=== PATIENT | male | born 1945 ===

== ENCOUNTER 2020-06-07 10:59 | Inpatient (IN) | payer MEDICARE ==
[~2020-06-07] VITALS: Ht 177.8 cm; Wt 89.1 kg
[2020-06-07 11:50] LABS: Basophils # (auto) 0 10 ^3/uL (0-0.2); Basophils % (auto) 0.2 % (0.0-2.0); Eosinophils # (auto) 0 10 ^3/uL (0-0.8); Hematocrit 38.8 % (41.0-53.0); Hemoglobin 13.1 g/dL (13.5-17.5); Lymphocytes # (auto) 0.5 10 ^3/uL (0.4-5.4); Lymphocytes % (auto) 4.3 % (10.0-50.0); Mean Corpuscular Hemoglobin 31.7 pg (28.0-32.0); Mean Corpuscular Hgb Conc. 33.8 g/dL (32.0-36.0); Mean Corpuscular Volume 93.7 fL (80.0-100.0); Monocytes # (auto) 1.1 10 ^3/uL (0-1.3); Monocytes % (auto) 8.4 % (0.0-12.0); Neutrophils # (auto) 11.1 10 ^3/uL (1.6-8.6); Neutrophils % (auto) 87.1 % (37.0-80.0); Platelet Count (auto) 287 10^3/uL (140-450); Red Blood Cells 4.14 10^6/uL (4.5-5.90); Red Cell Distribution Width 15.4 % (11.8-14.3); White Blood Cell 12.7 10^3/uL (4.4-10.8)
[2020-06-07 12:02] LABS: Albumin 3.5 g/dL (3.4-5.0); Anion Gap 8 (5-15); Blood Urea Nitrogen 20 mg/dL (7-18); Calcium 8.8 mg/dL (8.5-10.1); Carbon Dioxide 21 mmol/L (21-32); Chloride 106 mmol/L (98-107); Glucose 135 mg/dL (74-106); Potassium 4.4 mmol/L (3.5-5.1); Sodium 135 mmol/L (136-145)
[2020-06-07 12:08] LABS: Alanine Aminotransferase 25 U/L (16-61); Alkaline Phosphatase 129 U/L (45-117); Aspartate Aminotransferase 15 U/L (15-37); BUN/Creatinine Ratio 17.4; Bilirubin, Total 0.6 mg/dL (0.2-1.0); GFR African American 80 mL/min; GFR Non-African American 66 mL/min; Total Protein 7.1 g/dL (6.4-8.2)
[2020-06-07] MEDS ORDERED: NITROGLYCERIN 0.4 MG SL TAB SL PRN (16:15)
[2020-06-07] MEDS ORDERED: ONDANSETRON HCL 4 MG/2 ML VIAL IV PRN (16:15)
[2020-06-07] MEDS ORDERED: HYDROmorphone HCL 2 MG/ML VL IV PRN (16:15)
[2020-06-07] MEDS ORDERED: MORPHINE SULF INJ 2 MG/ML SYRINGE 1ML IV PRN (16:15)
[2020-06-07 20:13] LABS: Urine Bacteria NONE SEEN /hpf (None Seen); Urine Blood Negative /uL (Negative); Urine Mucus FEW (None Seen); Urine Specific Gravity 1.024 (1.001-1.035); Urine WBC <1 /hpf (0 - 3)
[2020-06-07 22:00] VITALS: BP 105/62
[2020-06-07] MEDS ORDERED: SACU1TAB7 PO ×2 (22:50→23:04)
[2020-06-07] MEDS ORDERED: ROSU10TA16 PO ×2 (22:50→23:04)
[2020-06-07] MEDS ORDERED: AMIO200T33 PO ×2 (22:50→23:04)
[2020-06-07] MEDS ORDERED: OMEP20TA PO ×2 (22:50→23:04)
[2020-06-07] MEDS ORDERED: EPLE25TA PO ×2 (22:50→23:04)
[2020-06-07] MEDS ORDERED: FERR-20 PO (22:50)
[2020-06-07] MEDS ORDERED: SPIR25TA PO ×2 (22:50→23:04)
[2020-06-07] MEDS ORDERED: PRAS10TA8 PO (22:50)
[2020-06-07] MEDS ORDERED: IVAB1.7T PO ×2 (22:50→23:04)
[2020-06-07] MEDS ORDERED: ASPI325T4 PO (22:50)
[2020-06-07] MEDS ORDERED: FURO1TAB33 PO ×2 (22:50→23:04)
[2020-06-07] MEDS ORDERED: WARF3TAB22 PO (22:50)
[2020-06-07] MEDS ORDERED: TAM04C PO ×2 (22:50→23:04)
[2020-06-07] MEDS ORDERED: DOCU-80 PO (22:50)
[2020-06-07] MEDS ORDERED: MULTCAP45 PO (22:50)
[2020-06-07] MEDS ORDERED: LEVO100T8 PO (22:50)
[2020-06-07] MEDS ORDERED: FERR324T4 PO (23:04)
[2020-06-07] MEDS ORDERED: MULT-1018 PO (23:04)
[2020-06-07] MEDS ORDERED: LEVO100C3 PO (23:04)
[2020-06-07] MEDS ORDERED: LEVOTHYROXINE SODIUM 100 MCG TAB PO ONE (23:15)
[2020-06-07] MEDS ORDERED: AMIODARONE HCL 200 MG TAB PO ONE (23:15)
[2020-06-07 23:50] VITALS: BP 105/62
[2020-06-08 05:00] VITALS: BP 114/65
[2020-06-08 08:00] VITALS: BP 107/66
[2020-06-08] MEDS ORDERED: SACUBITRIL-VALSARTAN 24mg/26mg TAB PO SCH (10:00)
[2020-06-08] MEDS: SPIRONOLACTONE 25 MG TAB PO SCH (11:21)
[2020-06-08] MEDS: FERROUS SULFATE 325 MG TAB PO SCH (11:21)
[2020-06-08] MEDS: INSPRA PO SCH (11:21)
[2020-06-08] MEDS: IVABRADINE 5 MG TAB PO SCH ×2 (11:22→22:10)
[2020-06-08] MEDS: TAMSULOSIN HYDROCHLORIDE 0.4 MG CAP PO SCH (11:22)
[2020-06-08] MEDS: DOCUSATE SOD 100 MG CAP PO SCH (11:22)
[2020-06-08] MEDS: MULTIPLE VITAMIN TAB PO SCH (11:23)
[2020-06-08] MEDS: FUROSEMIDE 20 MG TAB PO SCH (11:23)
[2020-06-08] MEDS: ATORVASTATIN 20 MG TAB PO SCH (11:23)
[2020-06-08] MEDS: SACUBITRIL-VALSARTAN 24mg/26mg TAB PO SCH ×2 (11:24→22:11)
[2020-06-08 12:00] VITALS: BP 102/66
[2020-06-08 16:00] VITALS: BP 102/50
[2020-06-08 17:27] LABS: INR 1.46 (0.9-1.15)
[2020-06-08] MEDS: LEVOTHYROXINE SODIUM 100 MCG TAB PO SCH (22:10)
[2020-06-08] MEDS: AMIODARONE HCL 200 MG TAB PO SCH (22:11)
[2020-06-08 22:21] VITALS: BP 111/58
[2020-06-09 06:42] LABS: BUN/Creatinine Ratio 18.2; Calcium 8.9 mg/dL (8.5-10.1); Potassium 4.2 mmol/L (3.5-5.1)
[2020-06-09 06:47] LABS: INR 1.34 (0.9-1.15); Partial Thromboplastin Time 34.4 sec (23.0-31.2)
[2020-06-09] MEDS ORDERED: ceFAZolin 1GM/50ML 100 ML IV ONE (07:07)
[2020-06-09] MEDS ORDERED: ROPIVACAINE 0.5% (5MG/ML) 20ML AMPULE IJ ONE (07:09)
[2020-06-09] MEDS ORDERED: BUPIVACAINE 0.5% P/F INJ 10 ML VIAL ONE (07:09)
[2020-06-09] MEDS ORDERED: HYDROmorphone HCL 2 MG/ML VL IV PRN (09:15)
[2020-06-09] MEDS ORDERED: ONDANSETRON HCL 4 MG/2 ML VIAL IV PRN ×2 (09:15)
[2020-06-09] MEDS ORDERED: NALBUPHINE HCL 10 MG/1ml INJECTION SUBCUT ONE (09:15)
[2020-06-09] MEDS ORDERED: NITROGLYCERIN 0.4 MG SL TAB SL PRN (09:15)
[2020-06-09] MEDS ORDERED: DexAMETHasone SOD PHOS 10MG/1ML VIAL INJ IV PRN (09:15)
[2020-06-09] MEDS ORDERED: diphenhdrAMINE HCL 50 MG/1 ML VL IV PRN (09:15)
[2020-06-09] MEDS ORDERED: NALOXONE HCL 0.4 MG/ML VIAL IV PRN (09:15)
[2020-06-09] MEDS ORDERED: ACETAMINOPHEN 325 MG TAB PO PRN (09:15)
[2020-06-09] MEDS ORDERED: ENOXAPARIN SOD 40 MG/0.4 ML SYRINGE SC SCH (10:00)
[2020-06-09] MEDS: TAMSULOSIN HYDROCHLORIDE 0.4 MG CAP PO SCH (10:30)
[2020-06-09] MEDS: FUROSEMIDE 20 MG TAB PO SCH (10:30)
[2020-06-09] MEDS: IVABRADINE 5 MG TAB PO SCH ×2 (10:30→22:00)
[2020-06-09] MEDS: INSPRA PO SCH (10:30)
[2020-06-09] MEDS: ATORVASTATIN 20 MG TAB PO SCH (10:30)
[2020-06-09] MEDS: SACUBITRIL-VALSARTAN 24mg/26mg TAB PO SCH ×2 (10:30→22:00)
[2020-06-09] MEDS: SPIRONOLACTONE 25 MG TAB PO SCH (10:30)
[2020-06-09] MEDS: MULTIPLE VITAMIN TAB PO SCH (11:00)
[2020-06-09] MEDS ORDERED: SODIUM CHLORIDE 0.9% 500 ML IV ONE (11:00)
[2020-06-09] MEDS: DOCUSATE SOD 100 MG CAP PO SCH (11:00)
[2020-06-09] MEDS: FERROUS SULFATE 325 MG TAB PO SCH (11:01)
[2020-06-09] MEDS: D5W/LACTATED RINGERS 1,000 ML IV SCH (12:27)
[2020-06-09 13:13] LABS: Basophils # (auto) 0.1 10 ^3/uL (0-0.2); Basophils % (auto) 0.5 % (0.0-2.0); Eosinophils # (auto) 0.1 10 ^3/uL (0-0.8); Eosinophils % (auto) 0.5 % (0.0-7.0); Hematocrit 34.6 % (41.0-53.0); Hemoglobin 11.5 g/dL (13.5-17.5); Lymphocytes # (auto) 0.9 10 ^3/uL (0.4-5.4); Lymphocytes % (auto) 7.5 % (10.0-50.0); Mean Corpuscular Hemoglobin 30.9 pg (28.0-32.0); Mean Corpuscular Hgb Conc. 33.1 g/dL (32.0-36.0); Mean Corpuscular Volume 93.2 fL (80.0-100.0); Monocytes # (auto) 1.6 10 ^3/uL (0-1.3); Monocytes % (auto) 13.9 % (0.0-12.0); Neutrophils # (auto) 9.2 10 ^3/uL (1.6-8.6); Neutrophils % (auto) 77.6 % (37.0-80.0); Platelet Count (auto) 253 10^3/uL (140-450); Red Blood Cells 3.71 10^6/uL (4.5-5.90); White Blood Cell 11.8 10^3/uL (4.4-10.8)
[2020-06-09] MEDS: ceFAZolin 1GM 2 GM in D5W 5% 100 ML IV SCH ×2 (14:20→22:03)
[2020-06-09] MEDS: SODIUM CHLOR 0.9% PF (SALINE LOCK) 10ML VIAL/SYR IV SCH ×2 (14:21→22:02)
[2020-06-09 14:30] VITALS: BP 82/71
[2020-06-09 16:52] VITALS: BP 89/49
[2020-06-09 20:00] VITALS: BP 95/58
[2020-06-09 22:00] VITALS: BP 95/56
[2020-06-09] MEDS: AMIODARONE HCL 200 MG TAB PO SCH (22:02)
[2020-06-09] MEDS: LEVOTHYROXINE SODIUM 100 MCG TAB PO SCH (22:03)
[2020-06-09] MEDS: HYDROcodone-ACET 10/325MG TAB PO PRN (23:10)
[2020-06-10 05:00] VITALS: BP 104/51
[2020-06-10] MEDS: D5W/LACTATED RINGERS 1,000 ML IV SCH (05:34)
[2020-06-10] MEDS: SODIUM CHLOR 0.9% PF (SALINE LOCK) 10ML VIAL/SYR IV SCH ×3 (06:00→22:00)
[2020-06-10 09:00] VITALS: BP 106/61
[2020-06-10] MEDS: ENOXAPARIN SOD 40 MG/0.4 ML SYRINGE SC SCH (10:00)
[2020-06-10] MEDS: INSPRA PO SCH (10:00)
[2020-06-10] MEDS: HYDROcodone-ACET 10/325MG TAB PO PRN ×2 (10:01→15:02)
[2020-06-10] MEDS: SPIRONOLACTONE 25 MG TAB PO SCH (10:02)
[2020-06-10] MEDS: TAMSULOSIN HYDROCHLORIDE 0.4 MG CAP PO SCH (10:02)
[2020-06-10] MEDS: FUROSEMIDE 20 MG TAB PO SCH (10:02)
[2020-06-10] MEDS: DOCUSATE SOD 100 MG CAP PO SCH (10:02)
[2020-06-10] MEDS: SACUBITRIL-VALSARTAN 24mg/26mg TAB PO SCH ×2 (10:02→22:03)
[2020-06-10] MEDS: IVABRADINE 5 MG TAB PO SCH ×3 (10:02→22:02)
[2020-06-10] MEDS: FERROUS SULFATE 325 MG TAB PO SCH (10:03)
[2020-06-10] MEDS: MULTIPLE VITAMIN TAB PO SCH (10:03)
[2020-06-10] MEDS: ATORVASTATIN 20 MG TAB PO SCH (10:08)
[2020-06-10 13:00] VITALS: BP 106/57
[2020-06-10] MEDS ORDERED: FUROSEMIDE 40 MG/4 ML VIAL IV ONE (16:30)
[2020-06-10 17:00] VITALS: BP 107/58
[2020-06-10 20:00] VITALS: BP 96/54
[2020-06-10 22:00] VITALS: BP 96/54
[2020-06-10] MEDS: LEVOTHYROXINE SODIUM 100 MCG TAB PO SCH (22:01)
[2020-06-10] MEDS: AMIODARONE HCL 200 MG TAB PO SCH (22:02)
[2020-06-11 05:00] VITALS: BP_SYST 138; BP_SYST 98; BP_DIAS 49; BP_DIAS 67
[2020-06-11] MEDS: SODIUM CHLOR 0.9% PF (SALINE LOCK) 10ML VIAL/SYR IV SCH ×3 (06:03→21:36)
[2020-06-11 08:27] VITALS: BP 117/66
[2020-06-11] MEDS: INSPRA PO SCH (09:53)
[2020-06-11] MEDS: TAMSULOSIN HYDROCHLORIDE 0.4 MG CAP PO SCH (09:56)
[2020-06-11] MEDS: ATORVASTATIN 20 MG TAB PO SCH (09:56)
[2020-06-11] MEDS: FERROUS SULFATE 325 MG TAB PO SCH (09:56)
[2020-06-11] MEDS: MULTIPLE VITAMIN TAB PO SCH (09:56)
[2020-06-11] MEDS: HYDROcodone-ACET 5/325MG TAB PO PRN (09:56)
[2020-06-11] MEDS: FUROSEMIDE 20 MG TAB PO SCH (09:57)
[2020-06-11] MEDS: DOCUSATE SOD 100 MG CAP PO SCH (09:58)
[2020-06-11] MEDS: SPIRONOLACTONE 25 MG TAB PO SCH (09:58)
[2020-06-11] MEDS: ENOXAPARIN SOD 40 MG/0.4 ML SYRINGE SC SCH (09:59)
[2020-06-11] MEDS: SACUBITRIL-VALSARTAN 24mg/26mg TAB PO SCH ×2 (09:59→21:36)
[2020-06-11] MEDS: IVABRADINE 5 MG TAB PO SCH ×2 (10:14→21:36)
[2020-06-11 12:30] VITALS: BP 98/55
[2020-06-11 17:08] VITALS: BP 92/55
[2020-06-11] MEDS: LEVOTHYROXINE SODIUM 100 MCG TAB PO SCH (21:36)
[2020-06-11] MEDS: AMIODARONE HCL 200 MG TAB PO SCH (21:36)
[2020-06-11 22:00] VITALS: BP 111/61
[2020-06-12 05:00] VITALS: BP 97/61
[2020-06-12] MEDS: SODIUM CHLOR 0.9% PF (SALINE LOCK) 10ML VIAL/SYR IV SCH ×3 (05:45→21:43)
[2020-06-12 08:08] VITALS: BP 115/66
[2020-06-12] MEDS: INSPRA PO SCH (10:00)
[2020-06-12] MEDS: FERROUS SULFATE 325 MG TAB PO SCH (11:05)
[2020-06-12] MEDS: SPIRONOLACTONE 25 MG TAB PO SCH (11:08)
[2020-06-12] MEDS: DOCUSATE SOD 100 MG CAP PO SCH (11:08)
[2020-06-12] MEDS: IVABRADINE 5 MG TAB PO SCH ×2 (11:09→21:44)
[2020-06-12] MEDS: TAMSULOSIN HYDROCHLORIDE 0.4 MG CAP PO SCH (11:09)
[2020-06-12] MEDS: SACUBITRIL-VALSARTAN 24mg/26mg TAB PO SCH ×2 (11:09→21:44)
[2020-06-12] MEDS: MULTIPLE VITAMIN TAB PO SCH (11:10)
[2020-06-12] MEDS: ATORVASTATIN 20 MG TAB PO SCH (11:10)
[2020-06-12] MEDS: FUROSEMIDE 20 MG TAB PO SCH (11:10)
[2020-06-12] MEDS: ENOXAPARIN SOD 40 MG/0.4 ML SYRINGE SC SCH (11:11)
[2020-06-12 12:30] VITALS: BP 117/58
[2020-06-12 16:59] VITALS: BP 90/46
[2020-06-12] MEDS: LEVOTHYROXINE SODIUM 100 MCG TAB PO SCH (21:44)
[2020-06-12] MEDS: AMIODARONE HCL 200 MG TAB PO SCH (21:44)
[2020-06-12 21:48] VITALS: BP 91/56
[2020-06-13] MEDS: SODIUM CHLOR 0.9% PF (SALINE LOCK) 10ML VIAL/SYR IV SCH (05:29)
[2020-06-13 05:36] VITALS: BP 96/54
[2020-06-13] MEDS: DOCUSATE SOD 100 MG CAP PO SCH (08:26)
[2020-06-13] MEDS: SPIRONOLACTONE 25 MG TAB PO SCH (08:26)
[2020-06-13] MEDS: TAMSULOSIN HYDROCHLORIDE 0.4 MG CAP PO SCH (08:26)
[2020-06-13] MEDS: ATORVASTATIN 20 MG TAB PO SCH (08:26)
[2020-06-13] MEDS: MULTIPLE VITAMIN TAB PO SCH (08:26)
[2020-06-13] MEDS: ENOXAPARIN SOD 40 MG/0.4 ML SYRINGE SC SCH (08:26)
[2020-06-13] MEDS: FERROUS SULFATE 325 MG TAB PO SCH (08:26)
[2020-06-13] MEDS: FUROSEMIDE 20 MG TAB PO SCH (08:27)
[2020-06-13] MEDS: INSPRA PO SCH (08:27)
[2020-06-13] MEDS: SACUBITRIL-VALSARTAN 24mg/26mg TAB PO SCH (08:27)
[2020-06-13] MEDS: IVABRADINE 5 MG TAB PO SCH (08:27)
[2020-06-13 08:30] VITALS: BP 106/59
[2020-06-13] MEDS: HYDROcodone-ACET 5/325MG TAB PO PRN (08:42)
== END 2020-06-13 10:24 | DRG 515 ==
LOC: EDBD 10:59 → ER 10:59 → TELE 11:00 → TELE-WESTW 20:42
PROVIDERS: ADMIT Internal Medicine Cardiovascular Disease; ATTEND Internal Medicine Cardiovascular Disease
PROC: BW1C1ZZ Fluoroscopy of Lower Extremity using Low Osmolar Contrast (ICD-10-PCS; 2020-06-09)
PROC: 0QSF04Z Reposition Left Patella with Internal Fixation Device, Open Approach (ICD-10-PCS; principal; 2020-06-09 07:21)
DX: S82.042A Displaced comminuted fracture of left patella, initial encounter for closed fracture (principal); I50.21 Acute systolic (congestive) heart failure; M25.062 Hemarthrosis, left knee; Z20.822 Contact with and (suspected) exposure to COVID-19; R73.9 Hyperglycemia, unspecified; D72.829 Elevated white blood cell count, unspecified; I25.10 Atherosclerotic heart disease of native coronary artery without angina pectoris; I25.5 Ischemic cardiomyopathy; W18.39XA Other fall on same level, initial encounter; I11.0 Hypertensive heart disease with heart failure; I25.2 Old myocardial infarction; Z87.891 Personal history of nicotine dependence; Z95.1 Presence of aortocoronary bypass graft; Z95.5 Presence of coronary angioplasty implant and graft; Y93.89 Activity, other specified; Y92.89 Other specified places as the place of occurrence of the external cause; Y99.8 Other external cause status; Z95.810 Presence of automatic (implantable) cardiac defibrillator; Z86.73 Personal history of transient ischemic attack (TIA), and cerebral infarction without residual deficits
CPT/HCPCS: 36415; 71045; 73562; 73700; 76000; 80048; 80053; 81001; 83880; 84484; 85025; 85610; 85730; 86850; 86900; 86901; 87426; 93005; 93306; 97116; 97530; G0378; J0690; J3490; J7060